=== PATIENT | female | born 1995 | race Caucasian/White ===

== ENCOUNTER 2019-08-15 15:57 | Emergency (ER) | payer OTHER ==
[~2019-08-15] VITALS: Ht 165.1 cm; Wt 68.0 kg
[2019-08-15] MEDS ORDERED: NAPROSYN500 MG PO (16:58)
[2019-08-15] MEDS ORDERED: TYLENOL WITH CO1 TA1 PO (16:58)
[2019-08-15 17:18] VITALS: BP 108/70
== END 2019-08-15 17:19 | disposition home or self-care (01) ==
LOC: M.ERS 15:57
DX: S43.491A Other sprain of right shoulder joint, initial encounter (principal); Z98.51 Tubal ligation status; Z80.0 Family history of malignant neoplasm of digestive organs; Y08.89XA Assault by other specified means, initial encounter; Y93.89 Activity, other specified; Y92.89 Other specified places as the place of occurrence of the external cause; Y99.8 Other external cause status